=== PATIENT | female | born 1970 | race Hispanic/Latino ===

== ENCOUNTER 2018-08-31 11:58 | Emergency (ER) | payer OTHER ==
[2018-08-31] MEDS ORDERED: ASPIRIN 325 MG TABLET ONE (12:08)
[2018-08-31 12:17] LABS: BASOPHILS % (AUTO) 0.8 % (0.0-5.0); EOSINOPHILS % (AUTO) 2.5 % (0.0-8.0); HEMATOCRIT 36.5 % (36-48); LYMPHOCYTES % (AUTO) 40.9 % (21.0-51.0); MEAN CORPUSCULAR HEMOGLOBIN 25.3 pg (27.0-33.0); MEAN CORPUSCULAR HGB CONC 32.1 g/dL (32.0-36.0); MONOCYTES % (AUTO) 8.6 % (3.0-13.0); NEUTROPHILS % (AUTO) 47.2 % (40.0-77.0); PLATELET COUNT (AUTO) 239 K/uL (130-400); RED BLOOD CELL COUNT(AUTO) 4.62 MIL/uL (4.00-5.50); RED CELL DISTRIBUTION WIDTH 15.2 % (11.0-15.5); WHITE BLOOD COUNT (AUTO) 5.6 K/uL (4.8-10.8)
[2018-08-31 12:26] LABS: CREATININE 0.7 mg/dL (0.5-1.5); POTASSIUM 3.8 mmol/L (3.5-5.1)
[2018-08-31 12:34] LABS: INR 0.95 (0.85-1.15); PARTIAL THROMBOPLASTIN TIME 28.2 SEC (26.3-35.5)
[2018-08-31 12:35] LABS: ALBUMIN 3.6 g/dL (3.5-5.0); BILIRUBIN,DIRECT 0.1 mg/dL (0.0-0.3); BILIRUBIN,TOTAL 0.2 mg/dL (0.2-1.0); TOTAL PROTEIN, SERUM 7.7 g/dL (6.0-8.3)
[2018-08-31 13:13] LABS: B-TYPE NATRIURETIC PEPTIDE 117 pg/mL (0-100)
[2018-09-01] MEDS ORDERED: SERT100T12 PO (10:38)
[2018-09-01] MEDS ORDERED: ATOR20TA65 PO (10:38)
[2018-09-01] MEDS ORDERED: OMEP40CA37 PO (10:38)
[2018-09-01] MEDS ORDERED: CARV25TA PO (10:38)
[2018-09-01] MEDS ORDERED: MONT10TA24 PO (10:38)
== END 2018-08-31 14:47 | disposition home or self-care (01) ==
LOC: EDH 11:58
DX: R07.89 Other chest pain (principal); Z85.3 Personal history of malignant neoplasm of breast
CPT/HCPCS: 36415; 71045; 80053; 80076; 82550; 83880; 84484; 85025; 85610; 85730; 93005

== ENCOUNTER → 2020-08-06 | Outpatient (CLI) | payer OTHER ==
[~2020-08-06] MED LIST: AEC81 PO; ALPR1TAB7 PO; ATOR20TA65 PO; BENZ-51 PO; CARV3.12 PO; FURO20TA6 PO; GABA100C PO; LOSA25TA41 PO; MONT10TA96 PO; NAPR-1023 PO; OMEP40CA13 PO; SERT100T12 PO; SILD20TA PO; TRAZ150T79 PO
== END | disposition home or self-care (01) ==
LOC: SHCH 07:54
PROVIDERS: ATTEND Internal Medicine Cardiovascular Disease
DX: I34.0 Nonrheumatic mitral (valve) insufficiency (principal)
CPT/HCPCS: 93306

== ENCOUNTER → 2022-09-30 | Outpatient (CLI) | payer OTHER ==
[~2022-09-30] MED LIST changes: +BENZ-226 PO; -BENZ-51 PO; -FURO20TA6 PO; +MONT-39 PO; -MONT10TA96 PO; -OMEP40CA13 PO; +OMEP40CA21 PO; +SERT-440 PO; -SERT100T12 PO
[2022-09-30 13:56] LABS: CREATININE 0.7 mg/dL (0.5-1.5); MAGNESIUM 2.1 mg/dL (1.80-2.40); POTASSIUM 3.8 mmol/L (3.5-5.1)
== END | disposition home or self-care (01) ==
LOC: LAB 09:53
PROVIDERS: ATTEND Internal Medicine Cardiovascular Disease
DX: I10 Essential (primary) hypertension (principal)
CPT/HCPCS: 36415; 80048; 83735; 83880

== ENCOUNTER → 2022-10-13 | Outpatient (CLI) | payer OTHER ==
[~2022-10-13] MED LIST changes: +IOHEXOL 350 MG/ML 100ML INFUS..BTL IV ONE; +METOPROLOL TARTRATE 1 MG/ML 5ML VIAL IV ONE
== END | disposition home or self-care (01) ==
LOC: RAH 11:19
PROVIDERS: ATTEND Internal Medicine Cardiovascular Disease
DX: R07.9 Chest pain, unspecified (principal); K76.0 Fatty (change of) liver, not elsewhere classified
CPT/HCPCS: 75574; J3490; Q9967

== ENCOUNTER 2025-02-26 08:06 | Day surgery (SDC) | payer OTHER ==
[2025-02-22 10:25] LABS: IMMATURE GRANULOCYTE ABSOLUTE 0.02 K/uL (0-1); NUCLEATED RED BLOOD CELLS 0.0 % (0.0-0.19); PLATELET COUNT (AUTO) 219 K/uL (130-400); RED BLOOD CELL COUNT(AUTO) 4.70 MIL/uL (4.00-5.50); RED CELL DISTRIBUTION WIDTH 12.9 % (11.0-15.5); WHITE BLOOD COUNT (AUTO) 5.7 K/uL (4.8-10.8)
[2025-02-22 10:36] LABS: INR 0.99 (0.85-1.15)
[2025-02-22 10:43] LABS: CREATININE 0.8 mg/dL (0.5-1.0); GLOMERULAR FILTR. RATE CALC 88.0 mL/min (>90); GLUCOSE,RANDOM 119.0 mg/dL (70-105); SODIUM SERUM 143.0 mmol/L (136-145); UREA NITROGEN, BLOOD 8.0 mg/dL (7-18)
[2025-02-22 10:49] VITALS: BP 127/68; PULSE 84; RESP 18; TEMP 98.4
--- NOTE | 2025-02-22 12:11 | EKG ---
[facility] [place] Test Date: 2025-02-22 Test Time: 10:15:46 Pat Name: KATIE FERRARA Department: [facility] Room: Gender: F Power Checker: [id number] : 1970 Requested By: Gabriel SU Order Number: [id number] Reading MD: Monica Barriga Measurements Intervals [place] Rate: 81 P: -43 HI: 170 QRS: -32 QRSD: 126 T: 112 QT: 405 QTc: 471 Interpretive Statements Sinus rhythm Left bundle branch block Compared to ECG 04/03/2022 12:35:23 No significant changes Electronically Signed On 02-23-2025 12:23:52 CDT by Monica Barriga Please click the below link to view image of tracing.
[~2025-02-26] VITALS: Ht 161.3 cm; Wt 100.2 kg
[2025-02-26] VITALS (8 sets, daily range): BP systolic 97–111; BP diastolic 39–61; PULSE 75–85; RESP 13–16; TEMP 97.9–98.2
[~2025-02-26 08:06] MED LIST changes: +ALBU90AE IH; -ALPR1TAB7 PO; -ATOR20TA65 PO; -BENZ-226 PO; +BUSP10TA3 PO; -IOHEXOL 350 MG/ML 100ML INFUS..BTL IV ONE; -LOSA25TA41 PO; -METOPROLOL TARTRATE 1 MG/ML 5ML VIAL IV ONE; -NAPR-1023 PO; -OMEP40CA21 PO; +PRAZ2CAP2 PO; +RISP1TAB89 PO; +ROSU40TA88 PO; +SEMA0.258 SQ; -SERT-440 PO; -TRAZ150T79 PO; +VITAD50000 PO; +ZOLP-685 PO
[2025-02-26] MEDS: MIDAZOLAM HCL 1 MG/ML 2ML VIAL IVP ONE ×4 (10:42→10:43)
[2025-02-26] MEDS: 0.9%NACL 1000ML 1,000 ML IV SCH (10:44)
[2025-02-26] MEDS: LIDOCAINE HCL 2% VISCOUS 15 ML UDCUP PO ONE (10:44)
[2025-02-26] MEDS ORDERED: PERFLUTREN PROTEIN-A MICROSPHR 0.22 MG/ML VIAL IV ONE (11:30)
--- NOTE | 2025-03-02 11:56 | HMCSR ---
APPROVED REPORT EXAM: Transesophageal echocardiogram with color flow Doppler. 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 15 mL 2% Viscous Lidocaine was given as a topical anesthetic prior to the administration of the consc ious sedation. Type of Sedation: Conscious Sedation Sedation was administered by Jorge Moore RN. Sedation was achieved with refer to chart intravenously. Transesophageal probe was inserted and advanced into esophagus without difficulty by Dr. Nicole. MOJGAN was performed and images were obtained, probe was removed without complications. Throughout the procedure, the blood pressure, pulse oximetry, cardiac rhythm, and rate were monitored . The patient tolerated the procedure without adverse effects. Recovery from conscious sedation was une ventful and vital signs were stable. Left Ventricle Left ventricular cavity size is normal. Apical hypertrophy may be present. Possible apical pseudoaneu rysm. LVEF is 45-50%. Probable apical left ventricular thrombus is present measuring approximately 2. 1cm. Right Ventricle The right ventricle is moderately dilated. Atria The left atrium is moderately dilated. No thrombus is visualized in the left atrium or appendage. Int eratrial septum is intact without evidence of ASD or PFO. The right atrium is severely dilated. Aortic Valve The aortic valve is normal in structure. No aortic regurgitation is present. There is no aortic valvu lar stenosis. 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 Doppler consistent with mild perivalvular leak of the prosthetic mitral valve. There i s no mitral valve stenosis. Tricuspid Valve Tricuspid valve is grossly normal in structure. Mild tricuspid regurgitation. Pulmonic Valve Pulmonic valve is not well visualized. Great Vessels The aortic root is normal in size. Pericardium No pericardial effusion. Conclusion Left ventricular cavity size is normal. Apical hypertrophy may be present. Possible apical pseudoaneurysm. LVEF is 45-50%. Probable apical left ventricular thrombus is present measuring approximately 2.1cm. The right ventricle is moderately dilated. The left atrium is moderately dilated. No thrombus is visualized in the left atrium or appendage. The aortic valve is normal in structure. 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 Doppler consistent with mild perivalvular leak of the prosthetic mitral valve. There is no mitral valve stenosis. Tricuspid valve is grossly normal in structure. Mild tricuspid regurgitation. The aortic root is normal in size. No pericardial effusion.
== END 2025-02-26 11:20 | disposition home or self-care (01) ==
LOC: DAH 08:06 → EDSTATUS 13:00
PROVIDERS: ATTEND Internal Medicine Cardiovascular Disease
DX: I34.0 Nonrheumatic mitral (valve) insufficiency (principal); I07.1 Rheumatic tricuspid insufficiency; I10 Essential (primary) hypertension; I44.7 Left bundle-branch block, unspecified; Z79.01 Long term (current) use of anticoagulants; E78.5 Hyperlipidemia, unspecified; I25.2 Old myocardial infarction; Z85.3 Personal history of malignant neoplasm of breast; Z20.822 Contact with and (suspected) exposure to COVID-19; Z88.6 Allergy status to analgesic agent; Z95.2 Presence of prosthetic heart valve; Z68.41 Body mass index [BMI] 40.0-44.9, adult; Z79.82 Long term (current) use of aspirin; Z79.899 Other long term (current) drug therapy
CPT/HCPCS: 80048; 85025; 85610; 85730; 36415; 93005; 93312; 99152; 82948; 93325; J3010; J7030; J2250 ×4; Q9956; A4615; A4215; A4657; A4222; A4221; A4663; A4216; A4606; A4223 ×3; 93308; G0500